=== PATIENT | male | born 1970 | race Caucasian/White ===

== ENCOUNTER 2019-04-13 00:33 | Observation (INO) ==
[2019-04-13] MEDS ORDERED: ASPIRIN PO ONE (00:47)
[2019-04-13 01:01] LABS: BASO# 0.04 X1000 (0.0-0.2); BASO% 0.5 % (0.0-0.8); EOS# 0.24 X1000 (0.0-0.7); EOS% 2.9 % (0.0-10.0); HEMATOCRIT 41.8 % (42.0-52.0); IMM GRAN# 0.02 X1000 (0.0-0.04); IMM GRAN% 0.2 % (0.0-0.5); LYMPH# 2.81 X1000 (1.2-3.4); LYMPH% 33.6 % (20.5-51.1); MCH 30.6 PG (27-31); MCHC 33.5 g/dL (33-37); MCV 91.3 FL (81-99); MONO# 0.67 X1000 (0.11-0.59); MPV 9.9 FL (7.4-10.4); NEUT# 4.58 X1000 (1.4-6.5); NEUT% 54.8 % (42.2-75.2); PLT 267 X1000 (130-400); RBC 4.58 XMIL (4.7-6.1); RDW 12.9 % (11.5-14.5); WBC 8.36 X1000 (4.8-10.8)
[2019-04-13 01:21] LABS: INR 0.94; PROTIME 12.7 Seconds (11.0-16.0); PTT 29.4 Seconds (22.3-41.8)
[2019-04-13] MEDS ORDERED: NITROGLYCERIN TOP ONE (01:45)
[2019-04-13 01:48] LABS: AGAP 14; ALB/GLOB RATIO 1.7; ALBUMIN 4.5 g/dL (3.5-5.0); ALKALINE PHOSPHATASE 44 U/L (32-122); BUN 17 mg/dL (8-22); CALCIUM 8.9 mg/dL (8.8-10.2); CHLORIDE 102 mmol/L (98-107); CK PROFILE 65 U/L (24-204); COSMO 284; ESTIMATED GFR > 60; GLUCOSE 129 mg/dL (70-104); GOT 21 U/L (10-34); GPT 24 U/L (10-44); POTASSIUM 4.1 mmol/L (3.5-5.1); SODIUM 141 mmol/L (136-145); TCO2 25 mmol/L (25-35); TOTAL BILIRUBIN 0.35 mg/dL (0.20-1.00); TOTAL PROTEIN 7.2 g/dL (6.3-8.3)
--- NOTE | 2019-04-13 02:38 | PROVIDER DOCUMENTATION ---
This chart was entered by Patyon Villalobos Scribe, acting as scribe for Michelle Stein MD. HPI-Chest Pain - General Chief Complaint: Chest Pain Stated Complaint: CHEST PAIN, ALSO TINNITUS Time Seen by Provider: 04/13/19 01:45 Source: patient Allergies/Adverse Reactions: Patient Allergies Allergy/AdvReac Type Severity Reaction Status Date / Time No Known Allergies Allergy Verified 09/30/14 20:54 Home Medications: Home Medication List Medication Instructions Recorded Confirmed Last Taken Type Simvastatin 20 mg PO HS 09/30/14 04/13/19 09/29/14 21:00 History 1 Zolpidem [Ambien] 5 mg PO QHS 09/30/14 04/13/19 09/29/14 21:00 History 1 Lisinopril/Hydrochlorothiazide 1 each PO DAILY 7 Days #10 tablet 07/13/17 04/13/19 Unknown Rx [Lisinopril-Hctz 20-12.5 mg Tab] - History of Present Illness-CP Nature of Presenting Problem: 48 yowm c/o cp discomfort, and tightness left sided intermittent throughout day. pt sts was asleep and woke pt up [id number] and became mildly diaphoretic. pain doesn't radiate. went back to bed and then again awoke with substernal chest pressure and diaphoresis. No dyspnea no nausea. pt has strong family hisory of early heart disease; dad had NM late 40s and now with LVAD, grandmother on mom's side had pacemaker and multiple NM's . Has not taken anything for his symptoms Location: reports: other (left sided) Chest Pain Radiation: reports: no radiation Quality of Pain: reports: tightness, other (discomfort) Onset/Duration: other (all day today) Timing: intermittent Context/Activities at Onset: reports: sleep Modifying Factors: improves with: lying down (can get comfortable) Associated Symptoms: reports: denies symptoms. denies: nausea, shortness of breath, vomiting Review of Systems - Adult - REVIEW OF SYSTEMS - ADULT Constitutional: reports: see HPI, other (mild diaphoresis). denies: fever, fatique, night sweats Eyes: reports: no symptoms reported Ears, Nose, Mouth & Throat: reports: no symptoms reported Cardiovascular: reports: see HPI, chest pain. denies: heart murmur, palpitations, poor circulation, PND Respiratory: reports: no symptoms reported Gastrointestinal: reports: no symptoms reported Genitourinary: reports: no symptoms reported Musculoskeletal: reports: no symptoms reported Integumentary: reports: no symptoms reported Neurological: reports: no symptoms reported Psychiatric: reports: no symptoms reported Endocrine: reports: no symptoms reported Hematologic/Lymphatic: reports: no symptoms reported Allergic/Immunologic: reports: no symptoms reported All Other Systems: Reviewed and Negative Past History - Adult - PAST MEDICAL HISTORY-ADULT Review of Records: reports: Old Records Reviewed, Nursing Assessment Review, Medications Reviewed, Social history reviewed & non-contributory. Major Childhood Illnesses: reports: denies history Cardiovascular: reports: HTN, hyperlipidemia Respiratory: reports: denies history Gastrointestinal: reports: denies history Obstetrical/Gynecological: reports: denies history Genitourinary: reports: denies history Musculoskeletal: reports: denies history Neurological: reports: denies history Endocrine/Immune: reports: denies history Other Conditions: reports: denies history - PRIOR SURGERIES/PROCEDURES Surgical/Procedure History: reports: back/neck (back), other - IMMUNIZATION STATUS Childhood Immunizations: NUTD Flu Vaccine: NUTD - FAMILY HISTORY Family History: reviewed, not pertinent - SOCIAL HISTORY Smoking: quit less than 1 year, other (former) Substance Use: none/never Physical Exam-General - PHYSICAL EXAM-ADULT Initial Vital Signs Reviewed: Yes - CONSTITUTIONAL General Appearance: appears well, alert, no apparent distress - EYES Eyes: PERRL/EOMI, pink conjunctivae - HEAD, EARS, NOSE, MOUTH & THROAT HENMT: normocephalic/atraumatic, moist mucous membranes, normal ENT inspection - NECK Neck: non-tender, full range of motion, supple, normal inspection - RESPIRATORY Respiratory: chest non-tender, lungs clear, normal breath sounds - CARDIOVASCULAR Cardiovascular: normal peripheral pulses, regular rate, rhythm, no edema, no gallop, no JVD, no murmur - GASTROINTESTINAL (ABDOMEN) Abdominal Exam: normal bowel sounds, non tender, soft - LYMPHATIC Lymphatic: no adenopathy - MUSCULOSKELETAL Back Exam: normal inspection, no CVA tenderness, no vertebral tenderness Extremity: normal range of motion, non-tender, normal inspection Peripheral Pulses: radial (R): 2+, radial (L): 2+ - SKIN Integumentary: normal color, normal turgor, warm/dry - NEUROLOGIC Neurologic: grossly normal, no motor/sensory deficits - PSYCHIATRIC Psych/Mental Status: normal mood/affect, normal thought content, normal thought process, oriented x 3 - HEART Score HEART Score: History: Highly Suspicious HEART Score: ECG: Normal HEART Score: Age: 45-65 Years HEART Score: Risk Factors for Atherosclerotic Disease: > or = 3 Risk Factors or History of Atherosclerotic Disease HEART Score: Troponin: < or = Normal Limit Total HEART Score:: 5 Progress - PLAN OF CARE/RESULTS Progress/Plan/Lab Results: Vital Signs - 8 hr 04/13/19 00:44 04/13/19 01:33 04/13/19 02:01 Temperature 98.2 F Pulse Rate 71 83 69 Respiratory Rate 16 20 15 Blood Pressure 123/82 125/87 108/79 O2 Sat by Pulse Oximetry 98 97 98 Laboratory Results - last 24 hr 04/13/19 04/13/19 04/13/19 00:44 00:44 00:44 WBC 8.36 RBC 4.58 L Hgb 14.0 Hct 41.8 L MCV 91.3 MCH 30.6 MCHC 33.5 RDW Std Deviation 12.9 Plt Count 267 MPV 9.9 Immature Gran % (Auto) 0.2 Neut % (Auto) 54.8 Lymph % (Auto) 33.6 [place] % (Auto) 8.0 Eos % (Auto) 2.9 Baso % (Auto) 0.5 Immature Gran # (Auto) 0.02 Neut # (Auto) 4.58 Lymph # (Auto) 2.81 [place] # (Auto) 0.67 H Eos # (Auto) 0.24 Baso # (Auto) 0.04 PT INR PTT (Actin FS) Sodium 141 Potassium 4.1 Chloride 102 Carbon Dioxide 25 Anion Gap 14 BUN 17 Creatinine 1.0 Estimated GFR/1.73 m2 > 60 BUN/Creatinine Ratio 17 Glucose 129 H Calculated Osmolality 284 Calcium 8.9 Total Bilirubin 0.35 AST 21 ALT 24 Alkaline Phosphatase 44 Creatine Kinase 65 Troponin T Krj-B-Elygftewopz Pept < 5 L Total Protein 7.2 Albumin 4.5 Globulin 2.7 Albumin/Globulin Ratio 1.7 04/13/19 04/13/19 00:44 00:44 WBC RBC Hgb Hct MCV MCH MCHC RDW Std Deviation Plt Count MPV Immature Gran % (Auto) Neut % (Auto) Lymph % (Auto) [place] % (Auto) Eos % (Auto) Baso % (Auto) Immature Gran # (Auto) Neut # (Auto) Lymph # (Auto) [place] # (Auto) Eos # (Auto) Baso # (Auto) PT 12.7 INR 0.94 PTT (Actin FS) 29.4 Sodium Potassium Chloride Carbon Dioxide Anion Gap BUN Creatinine Estimated GFR/1.73 m2 BUN/Creatinine Ratio Glucose Calculated Osmolality Calcium Total Bilirubin AST ALT Alkaline Phosphatase Creatine Kinase Troponin T < 0.010 Ust-I-Omkrfnpqqll Pept Total Protein Albumin Globulin Albumin/Globulin Ratio Orders Category Date Time Status CHEST-2 VIEWS [RAD] Stat Exams 04/13/19 00:47 Taken CBC WITH ELECTRONIC DIFF [HEME] Stat Lab 04/13/19 00:44 Completed CK PROFILE [SP CHEM] Stat Lab 04/13/19 00:44 Completed COMPREHENSIVE METABOLIC PANEL [CHEM] Stat Lab 04/13/19 00:44 Completed PRO B-NATRIURETIC PEPTIDE Stat Lab 04/13/19 00:44 Completed PROTIME WITH INR [COAG] Stat Lab 04/13/19 00:44 Completed PTT [COAG] Stat Lab 04/13/19 00:44 Completed TROPONIN T Stat Lab 04/13/19 00:44 Completed Aspirin Med 04/13/19 00:47 Discontinued 325 mg PO NOW ONE Nitroglycerin Med 04/13/19 01:45 Discontinued 0.5 inch TOP NOW ONE CP/SOB/Palp >45 yrs of Age Stat Oth 04/13/19 00:47 Ordered EKG [EKG] Stat Ther 04/13/19 00:35 Ordered chest pain will further evaluate for causes including but not limited to ACS, arrythmia, ptx, pna GI causes Result Diagrams: 04/13/19 00:44 04/13/19 00:44 - REASSESSMENT Reassessment #1 Status: improving (Chest pain resolved, ED work up unremarable but presentation concerning for ACS. Will admit for further evaluation and treatment. Discussed c ase with Dr. Anguiano, hospitalist, who will see and admit pt.) - EKG 1 Time of EKG reading by physician:: 00:36 EKG Read and Signed by:: Michelle Stien EKG Interpretation (*Must complete 3 of following elements*): Normal Rate: 69 Rhythm: NSR [place]: normal QRS: normal [place] Interval: normal ST Wave: normal Departure - Departure Date of Disposition Decision: 04/13/19 Time of Disposition Decision: 02:38 DIAGNOSIS: Chest pain Qualifiers: Chest pain type: unspecified Qualified Code(s): R07.9 - Chest pain, unspecified Disposition: ADMITTED INPATIENT 09 Certified Medical Emergency: Emergent Condition: Fair - Critical Care Note This patient required my direct & personal management of CC.: No Attestation - Physician/ CHRIS Attestation Patient care was provided by Advanced Practice Provider:: No The physician spent face to face time with patient:: Yes Advanced Practice Provider documentation review:: Supervising physician onsite and consulted in the evaluation and care of this patient. The physician did have a face to face encounter with the patient. This chart was documented by the indicated scribe, (Payton Villalobos Scribe) and accurately reflects the services I performed and decisions made by me, Michelle Olivares MD, as attested by the provider's signature.
[2019-04-13] MEDS ORDERED: NITROGLYCERIN SL PRN (03:35)
[2019-04-13] MEDS ORDERED: TYLENOL PO PRN (03:35)
[2019-04-13] MEDS ORDERED: MORPHINE IV PRN (03:35)
[2019-04-13] MEDS ORDERED: LOVENOX SUBQ SCH (03:35)
[2019-04-13] MEDS ORDERED: ZOFRAN IV PRN (03:35)
[2019-04-13 05:12] VITALS: BP 122/71
--- NOTE | 2019-04-13 05:12 | EKG Report ---
Test Performed on : 04/13/2019 00:36:55 AM Test Reason : cp Blood Pressure : / mmHG Vent. Rate : 069 BPM Atrial Rate : 069 BPM P-R Int : 146 ms QRS Dur : 100 ms QT Int : 362 ms P-R-T Axes : 017 066 046 degrees QTc Int : 387 ms Normal sinus rhythm. Normal ECG When compared with ECG of 13-JUL-2017 18:15, No significant change was found Unconfirmed Result
--- NOTE | 2019-04-13 06:36 | Diag Imaging Result Doc PS360 ---
CHEST-2 VIEWS - 04/13/2019 INDICATION: cp COMPARISON: 08/15/2018 FINDINGS: The lungs are normally expanded and clear. Heart size and mediastinal contours are normal. No pneumothorax or pleural effusion. IMPRESSION: Negative exam. Electronically signed by Armando Patterson 04/13/2019 6:34 AM
[2019-04-13] MEDS ORDERED: PRILOSEC PO SCH (07:00)
--- NOTE | 2019-04-13 07:35 | EKG Report ---
Test Performed on : 04/13/2019 07:30:03 AM Test Reason : cp Blood Pressure : / mmHG Vent. Rate : 071 BPM Atrial Rate : 071 BPM P-R Int : 146 ms QRS Dur : 102 ms QT Int : 358 ms P-R-T Axes : 025 058 048 degrees QTc Int : 389 ms Normal sinus rhythm. Normal ECG Confirmed by Marilynn BAKER, Cale Milton ([id number]) on 04/13/2019 3:31:36 PM
--- NOTE | 2019-04-13 07:52 | HISTORY AND PHYSICAL ---
CHIEF COMPLAINT: Chest pain. HISTORY OF PRESENT ILLNESS: This is a 48-year-old male who came in with tightness in the left side of his chest which was intermittent throughout the day. He states he was asleep, around 9:30 he became diaphoretic. The pain became more intense in the left side of his chest. It did not radiate. He went back to bed and woke up again with substernal chest pressure and diaphoresis. No nausea. No vomiting. At any rate, he came into the emergency room. He has a strong family history of early heart disease. He also complained of some tinnitus which had also subsided. During my interview, the pain had subsided. He will be kept in observation status for further evaluation. PAST MEDICAL HISTORY: Hypertension, hyperlipidemia. PAST SURGICAL HISTORY: Back surgery. FAMILY HISTORY: Father began having myocardial infarctions in his late 40s. Grandmother on his mother's side had multiple myocardial infarctions and a pacemaker. SOCIAL HISTORY: Stopped smoking in 06/2018. No alcohol. No illicit drugs. ALLERGIES: NO KNOWN DRUG ALLERGIES. HOME MEDICATIONS: Lisinopril/hydrochlorothiazide 20/12.5 one p.o. daily, simvastatin 20 mg p.o. nightly at bedtime, Ambien 5 mg p.o. nightly at bedtime. REVIEW OF SYSTEMS: A 14-point review of systems was conducted with the patient, and pertinent positives are listed above in the HPI. All other systems reviewed and found to be negative. PHYSICAL EXAMINATION: VITAL SIGNS: Temperature 98.2, pulse 72, respirations 16, blood pressure 122/71, oxygen saturation 100% on room air. GENERAL: A pleasant 48-year-old male lying on the ER stretcher. He is alert and oriented x3. Answered all questions appropriately. HEENT: Head is atraumatic and normocephalic. Pupils are equal, round and reactive to light. Extraocular eye movements intact. Sclerae nonicteric. Conjunctivae pink. Oral mucosa is moist. NECK: Supple. No JVD. No thyromegaly. Trachea is midline. No cervical lymphadenopathy. CARDIAC: S1 and S2 appreciated. No murmurs, gallops or rubs. LUNGS: Clear to auscultation bilaterally. No rhonchi, wheezes or rales. Symmetric rise and fall with respirations. ABDOMEN: Soft, nondistended and nontender. Bowel sounds present in all 4 quadrants, normoactive. No pulsatile masses. No organomegaly. EXTREMITIES: No cyanosis, clubbing or edema. There are 2+ pedal pulses bilaterally. GENITOURINARY: No bladder distention. The patient voids. NEUROLOGICAL: Alert and oriented x3. No focal motor deficits. Otherwise nonfocal examination. DIAGNOSTIC DATA: Chest x-ray is within normal limits. WBC is 8.36, hemoglobin 14, hematocrit 41.8, platelet count 267. Coags within normal limits. Sodium is 141, potassium 4.1, chloride 102, carbon dioxide 25, BUN is 17, creatinine 1, glucose 129. Troponin less than 0.010 x2 sets. ASSESSMENT: 1. Chest pain. Rule out acute myocardial infarction. 2. Hypertension. 3. Hyperlipidemia. PLAN: We will place the patient in observation status. Saad Boone is his primary care provider, and we will defer to him further treatment tomorrow morning. I have ordered a stress test related to his HEART score being elevated related to family history. We will continue his home medications. Further recommendations based on clinical course. Dictated by JUAN ANTONIO Monsivais for Darrin Anguiano MD I have performed a face to face diagnostic evaluation. Labs/ xrays- reviewed. Exam- Chest- clear, CV- regular, Abd- soft. A/P- Chest Pain- Admit, cardiac work up, EKG, ASA, cardiology consult. Dr. Anguiano cc: JUAN ANTONIO Monsivais MD Ingrid Boone MD [facility]
[2019-04-13] MEDS ORDERED: ASPIRIN PO SCH (09:00)
[2019-04-13] MEDS ORDERED: PRINZIDE 20/12.5MG PO SCH (09:00)
[2019-04-13] MEDS ORDERED: FLU VACCINE IM ONE (12:23)
--- NOTE | 2019-04-13 17:37 | Diag Imaging Result Document ---
PROCEDURE NAME: MYOCARDIAL PERF SCAN, STR/REST - 04/13/2019 STUDY: Rest/stress treadmill exercise myocardial perfusion study. INDICATION: Chest pain. DESCRIPTION: The patient came into the nuclear laboratory, received resting injection of technetium 99 sestamibi 14 mCi. Multiple tomographic views of the cardiac structures were obtained at rest. Subsequently, the patient underwent treadmill exercise protocol. At peak exercise, injected with technetium 99 sestamibi 36.6 mCi. Multiple tomographic views of the cardiac structures were obtained following completion of the exercise protocol. SUMMARY OF THE ELECTROCARDIOGRAPHIC PORTION OF THE STUDY: Resting ECG shows sinus rhythm, rate 70 beats per minute, resting blood pressure 128/81. Resting ECG looks basically normal. The patient walked on the treadmill for a total time of 10 minutes. He completed three stages of Nnamdi protocol and walked for 1 minute into the fourth stage, achieving a maximum heart rate of 173 beats per minute, representing 101% of maximum predicted heart rate for the patient's age. Peak systolic blood pressure 180/90. Peak exercise ECG showed sinus tachycardia without any ischemic changes. The test was terminated due to fatigue and achievement of adequate heart rate. The patient was injected with radiotracer one minute prior to the termination of exercise. Following the completion of the test, the heart rate and blood pressure returned back to their baseline. Occasional PVCs noted. The exercise capacity is normal. The blood pressure response is physiologic. The level of stress based on double product of peak systolic blood pressure x peak heart rate is good at 31,140. The workload is 11.7 METS. This is a normal ECG response. SUMMARY OF THE MYOCARDIAL PERFUSION PORTION OF THE STUDY: Poststress tomographic views of the left ventricle showed normal homogeneous distribution of radiotracer throughout the entire ventricular myocardium. There is no evidence of any postexercise defect. Rest images showed normal perfusion. Polar plots revealed the same. No evidence of any inducible ischemia nor myocardial scar. Gated SPECT using the [employer] protocol is 72%. There is no wall motion abnormality. The lung/heart ratio is normal. TID is normal. SUMMARY: This study shows: 1. Normal electrocardiographic response to exercise. 2. Normal poststress myocardial perfusion scan. There is no scintigraphic evidence of exercise induced myocardial ischemia. 3. Normal left ventricular systolic function, ejection fraction is 72%. Normal ventricular volumes. No wall motion abnormality. The study represents low risk for ischemic events. cc: MD Jovon Quinones CRNP M. Neel Roberts, MD MTDD
[2019-04-13] MEDS ORDERED: AMBIEN PO SCH (21:00)
[2019-04-13] MEDS ORDERED: ZOCOR PO SCH (21:00)
[2019-04-14] MEDS ORDERED: ASPIRIN PO SCH (09:00)
[2019-04-14] MEDS ORDERED: PAXIL PO SCH (09:00)
== END 2019-04-13 13:03 | disposition home or self-care (01) ==
LOC: ED 00:33 → 1N 00:34 → SUATTDRO 00:34 → INTOOBSV 00:34
PROVIDERS: ADMIT Internal Medicine; ATTEND Internal Medicine